=== PATIENT | male | born 1960 | race African-American/Black ===

== ENCOUNTER 2025-06-21 05:57 | Inpatient (IN) | payer MEDICARE, MEDICAID ==
[~2025-06-21] VITALS: Ht 172.7 cm; Wt 62.9 kg
[2025-06-21] MEDS: SODIUM CHLORIDE 0.9% 1,000 ML IV ONE (06:15)
[2025-06-21] MEDS: KETOROLAC TROMETH 30 MG/ML 1ML VIAL IV ONE (06:15)
--- NOTE | 2025-06-21 06:23 | ED.PDOC ---
Musculoskeletal HPI Comments This is a 64 year old male YVONA presenting to the ED with chief complaint of leg pain and generalized weakness. EMS reports patient called 911 while at a hotel with his mother due to not being able to ambulate on his own from right leg pain that he has been experiencing for the past few days. Patient relays that his pa in worsened around 4:30 this morning when attempting to go to the bathroom. EMS states patient had recently been prescribed Cipro for a UTI diagnosis, however, he has not been taking his antibiotics as prescribed. Patient denies any N/V/D, chest pain, SOB, dizziness, headache, or syncope. Chief Complaint: General Weakness Time Seen by MD: 06:21 Reviewed Notes: Nurses Notes, [employer] Notes, Medications, Allergies Allergies: Coded Allergies: NO KNOWN ALLERGIES (Unverified , 06/21/25) Information Source: Patient, Emergency Med Personnel Mode of Arrival: EMS Location: Right Extremity Location: Leg Timing: Days Prehospital treatment: None Severity: Moderate Able to Move Extremity: Yes Bear Weight: Limited Pain: Moderate Mechanism: Spontaneous Circumstances: Spontaneous Onset of Symptoms: Spontaneous Symptoms: Pain DVT Risk Factors: NONE Last Tetanus: Unknown Past Medical History PAST MEDICAL HISTORY: UTI'S Past Medical History (Other): Parkinson's Surgical History: Denies all surgeries Family History Family History: Reviewed,noncontributory to illness Social History Smoker: Non-Smoker Alcohol: Denies ETOH Use Drugs: Denies Drug Use Lives In: Home Constitutional: reports: weakness; denies: chills, diaphoresis, fatigue, fever, malaise, sweats, others EENTM: denies: blurred vision, double vision, ear bleeding, ear discharge, ear drainage, ear pain, ear ringing, eye pain, eye redness, hearing loss, mouth pain, mouth swelling, nasal discharge, nose bleeding, nose congestion, nose pain, photophobia, tearing, throat pain, throat swelling, voice changes, others Respiratory: denies: cough, hemoptysis, orthopnea, SOB at rest, shortness of breath, SOB with excertion, stridor, wheezing, others Cardiovascular: denies: chest pain, dizzy spells, diaphoresis, Dyspnea on exertion, edema, irregular heart beat, left arm pain, lightheadedness, palpitations, PND, syncope, others Gastrointestinal: denies: abdomen distended, abdominal pain, blood streaked bowels, constipated, diarrhea, dysphagia, difficulty swallowing, hematemesis, melena, nausea, poor appetite, poor fluid intake, rectal bleeding, rectal pain, vomiting, others Genitourinary: denies: burning, dysuria, flank pain, frequency, hematuria, incontinence, penile discharge, penile sore, pain, testicle pain, testicle swelling, urgency, others Neurological: denies: dizziness, fainting, headache, left sided numbness, left sided weakness, numbness, paresthesia, pre-existing deficit, right sided numbness, right sided weakness, seizure, speech problems, tingling, tremors, weakness, others Musculoskeletal: reports: others (Right leg pain); denies: back pain, gout, joint pain, joint swelling, muscle pain, muscle stiffness, neck pain Integumetry: denies: bruises, change in color, change in hair/nails, dryness, laceration, lesions, lumps, rash, wounds, others Allergic/Immunocompromised: denies: Difficulty Healing, Frequent Infections, Hives, Itching, others Hematologic/Lymphatic: denies: anemia, blood clots, easy bleeding, easy bruising, swollen glands, others Endocrine: denies: excessive hunger, excessive sweating, excessive thirst, excessive urination, flushing, intolerance to cold, intolerance to heat, unexplained weight gain, unexplained weight loss, others Psychiatric: denies: anxiety, bipolar disorder, depression, hopeless, panic disorder, schizophrenia, sleepless, suicidal, others All Other Systems: Reviewed and Negative Physical Exam General Appearance: Moderate Distress HEENT: Pale Conjuntivae (L), Pale Conjuntivae (R), Pharynx Normal, TMs Normal Neck: Full Range of Motion, Non-Tender, Normal, Normal Inspection Respiratory: Chest Non-Tender, Lungs Clear, No Accessory Muscle Use, No Respiratory Distress, Normal Breath Sounds Cardiovascular: No Edema, No JVD, No Murmur, No Gallop, Normal Peripheral Pulses, Regular Rate/Rhythm Breast Exam: Deferred Gastrointestinal: No Organomegaly, Non Tender, No Pulsatile Mass, Normal Bowel Sounds, Soft Genitalia: Deferred Pelvic: Deferred Rectal: Deferred Extremities: No calf tenderness, Normal capillary refill, No pedal edema Musculoskeletal : Apperance: Normal Neurologic: Alert, district branch manager II-XII nml as Tested, Motor Weakness, Normal Affect, Normal Mood, No Sensory Deficits Cerebellar Function: Normal Reflexes: Normal Skin: Dry, Normal Color, Warm Lymphatic: No Adenopathy Was a procedure done? Was a procedure done?: No Differential Diagnosis EXT Differential Diagnosis: Strain X-Ray, Labs, Meds, VS Vital Signs Date Time Temp Pulse Resp B/P (MAP) Pulse Ox O2 Delivery O2 Flow Rate FiO2 06/21/25 08:50 98.9 87 17 161/101 (121) 100 98.9 06/21/25 08:50 87 17 100 Room Air 06/21/25 06:00 98.3 102 16 162/96 97 98.3 06/21/25 06:00 93 Lab Test 06/21/25 07:11 Range/Units Sodium Level 143 136-145 mmol/L Potassium Level 3.8 3.5-5.1 mmol/L Chloride Level 106 98-107 mmol/L Carbon Dioxide Level 28 20-31 mmol/L Anion Gap 9 5-15 Blood Urea Nitrogen 11 9-23 mg/dL Creatinine 1.10 0.700-1.30 mg/dL Glomerular Filtration Rate Calc 75 >90 mL/min BUN/Creatinine Ratio 10.0 10.0-20.0 Serum Glucose 77 74-106 mg/dL Calcium Level 9.5 8.7-10.4 mg/dL Current Medications Medications (Trade) Dose Ordered Sig/Michelle Route Start Time Stop Time Status Last Admin Sodium Chloride 1,000 ml @ 1,000 mls/hr Q1H ONCE IV 06/21/25 06:15 06/21/25 07:14 DC 06/21/25 06:15 Ketorolac Tromethamine (Toradol Injection) 15 mg ONCE ONCE IV 06/21/25 06:15 06/21/25 06:16 DC 06/21/25 06:15 IV Hep-Lock was established The patient was given a 1 L bolus of normal saline The patient was given ketorolac 15 mg IV push The chemistry panel is within normal limits The patient was slightly hypertensive at 161/101 At this time, the patient is being admitted to the hospitalist Images Reviewed?: Images reviewed and evaluated by me Time of 1ST Reevaluation: 10:35 Reevaluation 1ST: Unchanged Consultation: Other Patient Education/Counseling: Diagnosis, Treatment, Prognosis Family Education/Counseling: No Family Present Departure 1 Departure Time of Disposition: 10:35 Impression: Primary Impression: Generalized weakness Additional Impression: Autonomic dysfunction Disposition: 09 ADMITTED INPATIENT Admit to: Med Surg Condition: Fair Critical Care Note Critical Care Time?: No Stability Stability form required: No Heart Score Heart Score: Heart Score Response (Comments) Value History N/A 0 EKG N/A 0 Age N/A 0 Risk Factors N/A 0 Troponin N/A 0 Total 0 I personally scribed for KRISTIE BAH MD ([email or web address]) on 06/21/25 at 06:23. Electronically submitted by Craig Cabello ([email or web address]). KRISTIE BAH MD Jun 21, 2025 06:23
[2025-06-21 07:50] LABS: Chloride 106 mmol/L (98-107); Potassium 3.8 mmol/L (3.5-5.1); Sodium 143 mmol/L (136-145)
[2025-06-21 07:51] LABS: Anion Gap 9 (5-15); Calcium 9.5 mg/dL (8.7-10.4); Carbon Dioxide 28 mmol/L (20-31)
[2025-06-21 07:56] LABS: BUN/Creatinine Ratio 10.0 (10.0-20.0); Blood Urea Nitrogen 11 mg/dL (9-23); Glucose 77 mg/dL (74-106)
[2025-06-21] MEDS ORDERED: ONDANSETRON HCL 4 MG/2 ML VIAL IV PRN (12:45)
[2025-06-21] MEDS ORDERED: ACETAMINOPHEN 325 MG TAB PO PRN (12:45)
[2025-06-21] MEDS ORDERED: HYDROcodone-ACET 5/325MG TAB PO PRN (12:45)
[2025-06-21] MEDS ORDERED: PIMA10TA PO (12:48)
[2025-06-21] MEDS ORDERED: CARB25TA77 (12:48)
[2025-06-21 12:50] LABS: Urine Protein, UAD TRACE (Negative)
--- NOTE | 2025-06-21 12:52 | DVHHP2 ---
History of Present Illness Reason for Visit: Generalized weakness with leg pain History of Present Illness Adrien Dotson is a 64-year-old male with past medical history of UTIs and Parkinson's disease who presents to the ED with complaint of right leg pain and weakness. Per mom Humera at bedside patient complaining of right thigh spasming. Patient's mom also reports that several days ago he was diagnosed with a UTI and was taking ciprofloxacin 3 pills. UA today noted no UTI. Patient reports that the right leg pain is 7/10 sharp and intermittent nature. He reports that movi ng makes it worse. Per mom Humera at bedside she states that the patient hallucinates and was seeing a psychiatrist once over a year ago. Patient currently denying any SI or hallucinations auditory or visual. Patient denies any recent travels, recent trauma or injury, recent sick contacts, recent ingestion of spoiled food, chest pain, shortness of breath, fever, chills, lightheadedness, dizziness, abdominal pain, nausea vomiting, diarrhea, or urinary symptoms. Patient reports that 3 weeks ago he was at the hotel with his mother when he had rolled off of the chair and caught himself. Renal/: UTI Past Medical History Parkinson's Past Surgical History: None Family History: Arthritis, DM, Hypertension, Other (Mom with diabetes, arthritis, and hypertension.) Smoke: No ALCOHOL: none Drugs: None Lives: with Family Domestic Violence: Neg Review of Systems Constitutional: Yes: Weakness Musculoskeletal: leg pain Allergies: Coded Allergies: NO KNOWN ALLERGIES (Unverified , 06/21/25) Exam Vital Signs Vital Signs Date Time Temp Pulse Resp B/P (MAP) Pulse Ox O2 Delivery O2 Flow Rate FiO2 06/21/25 08:50 98.9 87 17 161/101 (121) 100 98.9 06/21/25 08:50 Room Air General Appearance: Alert, Oriented X3, Cooperative, No acute distress HEENT: Atraumatic, PERRLA, EOMI, Mucous membr. moist/pink Respiratory: Clear to auscultation, Normal air movement Cardiovascular: Normal S1, Normal S2, No murmurs Abdominal: Normal bowel sounds, Soft, No tenderness Extremities: No cyanosis, Normal pulses, No tenderness/swelling Skin: No rashes, No breakdown, No significant lesion Neuro: Normal speech, Strength at 5/5 X4 ext, Normal tone, Sensation intact Psych/Mental Status: Mental status NL, Mood NL Labs/Xrays Labs Test 06/21/25 08:45 06/21/25 07:11 Range/Units Sodium Level 143 136-145 mmol/L Potassium Level 3.8 3.5-5.1 mmol/L Chloride Level 106 98-107 mmol/L Carbon Dioxide Level 28 20-31 mmol/L Anion Gap 9 5-15 Blood Urea Nitrogen 11 9-23 mg/dL Creatinine 1.10 0.700-1.30 mg/dL Glomerular Filtration Rate Calc 75 >90 mL/min BUN/Creatinine Ratio 10.0 10.0-20.0 Serum Glucose 77 74-106 mg/dL Calcium Level 9.5 8.7-10.4 mg/dL CLINICAL HISTORY: pain TECHNIQUE: Color and duplex doppler imagine of the bilateral lower extremity veins was performed. Vessel compression and augmentation if possible was also performed. COMPARISON: None FINDINGS: Right Lower Extremity: Right common femoral vein: Normal compressibility and flow. Right superficial femoral vein: Normal compressibility and flow. Right popliteal vein: Normal compressibility and flow. Left Lower Extremity: Left common femoral vein: Normal compressibility and flow. Left superficial femoral vein: Normal compressibility and flow. Left popliteal vein: Normal compressibility and flow. There is a 4.3 cm Ford's cyst with septations and debris. IMPRESSION: No sonographic evidence for DVT in the bilateral lower extremity veins. 4.2 cm left Ford's cyst. EXAM: CT HEAD WITHOUT CONTRAST INDICATION: pain TECHNIQUE: CT of the head without intravenous contrast. Radiation Dose : 1. Head: CT Dose: CTDI volume is 57.72 mGy. Dose-length product is 978.7 mGy*cm The dose indicators for CT are the volume Computed Tomography (CT) Dose Index (CTDIvol) and the Dose Length Product (DLP), and are measured in units of mGy and mGy-cm, respectively. These indicators are not patient dose, but values generated from the CT scanner acquisition factors. The report includes radiation exposure data for exposures received during this examination. COMPARISON: None FINDINGS: There is no evidence of acute intracranial hemorrhage, extra-axial collection, mass effect, midline shift, herniation or hydrocephalus. The ventricles, sulci and cisterns are age appropriate. The allen-white differentiation is intact. The visualized paranasal sinuses and mastoid air cells are clear. The surrounding soft tissues and osseous structures are unremarkable. IMPRESSION: No acute intracranial abnormality. SEPSIS Sepsis Screen Date sepsis recognized/suspect: Jun 21, 2025 Time Sepsis recognized/suspect: 06 Recent Procedure: No On Antibiotic Therapy: Yes Respiratory Rate >20: No Heart Rate >90: Yes Temp<36 C (96.8 F) or >38.3 C: No SBP <90 or MAP <65 mmHG: No New Acute Mental Status Change: No Is the patient on CPAP, BIPAP,: No Physician Orders Electrocardigram (06/21/25 05:59) Urinalysis (06/21/25 06:14) Heplock Iv (06/21/25 06:14) Eight Arm Operator (06/21/25 06:14) Blood Pressure (06/21/25 06:14) Pulse Oximetry (06/21/25 06:14) Vital Signs Date Time Temp Pulse Resp B/P (MAP) Pulse Ox O2 Delivery O2 Flow Rate FiO2 06/21/25 08:50 98.9 87 17 161/101 (121) 100 98.9 06/21/25 08:50 87 17 100 Room Air 06/21/25 06:00 98.3 102 16 162/96 97 98.3 06/21/25 06:00 93 Medications Medications Dose Ordered Sig/Michelle Route Start Time Stop Time Status Last Admin Dose Admin Ketorolac Tromethamine 15 mg ONCE ONCE IV 06/21/25 06:15 06/21/25 06:16 DC 06/21/25 06:15 15 MG Sodium Chloride 1,000 ml @ 1,000 mls/hr Q1H ONCE IV 06/21/25 06:15 06/21/25 07:14 DC 06/21/25 06:15 1,000 MLS/HR Assessment/Plan Assessment/Plan Assessment Generalized weakness Right lower extremity pain rule out DVT ? Muscle spasms 4.2 cm left Ford's cyst History of UTIs History of Parkinson's Plan Admit to med surge Antiemetics Pain management NS 1 L given ED UA EKG CBC ordered CT head Bilateral lower extremity venous ultrasound CK level Antispasmodics Diet Home medications reconciled DVT prophylaxis-SCDs PUD prophylaxis-not indicated no history of GERD or GI bleed Discussed plan of care with patient and nurse [id number] Preventive counseling healthy eating habits, physical activity, and regular checkups Plan discussed with: Patient, Other Date of Service: Jun 21, 2025 Billing Provider: KAYLEEN MARIN Common Visit Codes: [id number] INP/OBS CARE (HIGH) Secondary Visit Codes: [id number] COUNSELING IND KAYLEEN MARIN Jun 21, 2025 12:52
--- NOTE | 2025-06-21 13:24 | DVH ---
EXAM: CT HEAD WITHOUT CONTRAST INDICATION: pain TECHNIQUE: CT of the head without intravenous contrast. Radiation Dose : 1. Head: CT Dose: CTDI volume is 57.72 mGy. Dose-length product is 978.7 mGy*cm The dose indicators for CT are the volume Computed Tomography (CT) Dose Index (CTDIvol) and the Dose Length Product (DLP), and are measured in units of mGy and mGy-cm, respectively. These indicators are not patient dose, but values generated from the CT scanner acquisition factors. The report includes radiation exposure data for exposures received during this examination. COMPARISON: None FINDINGS: There is no evidence of acute intracranial hemorrhage, extra-axial collection, mass effect, midline shift, herniation or hydrocephalus. The ventricles, sulci and cisterns are age appropriate. The allen-white differentiation is intact. The visualized paranasal sinuses and mastoid air cells are clear. The surrounding soft tissues and osseous structures are unremarkable. IMPRESSION: No acute intracranial abnormality. Radiation optimization: All CT scans at this facility use at least one of these dose optimization techniques: automated exposure control mA and/or kV adjustment per patient size (includes targeted exams where dose is matched to clinical indication) or iterative reconstruction.
[2025-06-21 14:17] LABS: Hematocrit 46.2 % (41.0-53.0); Hemoglobin 15.0 g/dL (13.5-17.5); Mean Corpuscular Hemoglobin 27.0 pg (28.0-32.0); Mean Corpuscular Volume 83.2 fL (80.0-100.0); Nucleated Red Blood Cells % 0.0 %
--- NOTE | 2025-06-21 15:15 | DVH ---
CLINICAL HISTORY: pain TECHNIQUE: Color and duplex doppler imagine of the bilateral lower extremity veins was performed. Vessel compression and augmentation if possible was also performed. COMPARISON: None FINDINGS: Right Lower Extremity: Right common femoral vein: Normal compressibility and flow. Right superficial femoral vein: Normal compressibility and flow. Right popliteal vein: Normal compressibility and flow. Left Lower Extremity: Left common femoral vein: Normal compressibility and flow. Left superficial femoral vein: Normal compressibility and flow. Left popliteal vein: Normal compressibility and flow. There is a 4.3 cm Ford's cyst with septations and debris. IMPRESSION: No sonographic evidence for DVT in the bilateral lower extremity veins. 4.2 cm left Ford's cyst.
[2025-06-21 15:19] VITALS: BP 113/67; PULSE 100; RESP 19; TEMP 97; O2SAT 99
[2025-06-21] MEDS ORDERED: SODIUM CHLORIDE 0.9% 1,000 ML IV SCH (16:15)
[2025-06-21 17:00] VITALS: BP 113/67; PULSE 100; RESP 19; TEMP 97.8; O2SAT 99
[2025-06-21 20:25] VITALS: PULSE 90; RESP 18; O2SAT 94
[2025-06-21] MEDS: BACLOFEN 10 MG TAB PO PRN (20:32)
[2025-06-21 20:34] VITALS: BP 107/70; PULSE 90; RESP 19; TEMP 97.5; O2SAT 98
[2025-06-22] VITALS (8 sets, daily range): BP systolic 103–158; BP diastolic 70–98; PULSE 66–90; RESP 17–19; TEMP 97.9–98.5; O2SAT 94–100
[2025-06-22 09:00] LABS: Hematocrit 43.4 % (41.0-53.0); Hemoglobin 14.2 g/dL (13.5-17.5); Mean Corpuscular Hemoglobin 27.3 pg (28.0-32.0); Mean Corpuscular Volume 83.3 fL (80.0-100.0); Nucleated Red Blood Cells % 0.1 %
[2025-06-22 09:16] LABS: Alanine Aminotransferase 12 U/L (7-40); Albumin 4.1 g/dL (3.2-4.8); Alkaline Phosphatase 71 U/L (46-116); Anion Gap 8 (5-15); BUN/Creatinine Ratio 13.3 (10.0-20.0); Bilirubin, Total 0.9 mg/dL (0.2-1.0); Blood Urea Nitrogen 12 mg/dL (9-23); Calcium 9.0 mg/dL (8.7-10.4); Carbon Dioxide 25 mmol/L (20-31); Chloride 110 mmol/L (98-107); Glucose 80 mg/dL (74-106); Potassium 3.9 mmol/L (3.5-5.1); Sodium 143 mmol/L (136-145); Total Protein 6.5 g/dL (5.7-8.2)
[2025-06-22] MEDS: CARBIDOPA W LEVODOPA CR 25/100mg TABLET PO SCH (10:26)
--- NOTE | 2025-06-22 12:32 | DVHPN2 ---
Subjective Continues to report having intermittent pain to right lower extremity. Reviewed: Care Plan, H&P, Labs, Medications Changes from previous H/P or p: No Changes General: Per HPI Musculoskeletal: leg pain Objective Vitals Vital Signs Date Time Temp Pulse Resp B/P (MAP) Pulse Ox O2 Delivery O2 Flow Rate FiO2 06/22/25 09:00 97.9 78 18 158/98 (118) 100 97.9 06/21/25 20:25 Room Air* 0 21 Intake/Output Intake and Output 06/22/25 07:00 Intake Total 290 ml Output Total 400 ml Balance -110 ml Intake Oral 290 ml Output Urine Total 400 ml General Appearance: Alert, Oriented X3, Cooperative, No acute distress HEENT: Atraumatic, PERRLA Lungs: Clear to auscultation, Normal air movement Cardiovascular: Normal S1, Normal S2 Back: Flank Tenderness, Midline Tenderness Skin: Dry, Intact Psych/Mental Status: Mental status NL, Mood NL Medications Current Medications Medications Dose Ordered Sig/Michelle Route Start Time Stop Time Status Last Admin Dose Admin Acetaminophen/ Hydrocodone Bitart 1 tab Q4HP PRN PO 06/21/25 12:45 Ondansetron HCl 4 mg Q4HP PRN IV 06/21/25 12:45 Acetaminophen 650 mg Q6HP PRN PO 06/21/25 12:45 Carbidopa/Levodopa 1 tab DAILY PO 06/22/25 10:00 06/22/25 10:26 1 TAB Patient Own Medication 1 tab DAILY PO 06/22/25 10:00 Baclofen 5 mg Q8HP PRN PO 06/21/25 17:00 06/21/25 20:32 5 MG Laboratory Results Laboratory Tests 06/22/25 08:17 Chemistry Test 06/22/25 08:17 Albumin 4.1 g/dL (3.2-4.8) Calcium Level 9.0 mg/dL (8.7-10.4) Total Protein 6.5 g/dL (5.7-8.2) LFT Test 06/22/25 08:17 Alanine Aminotransferase (ALT) 12 U/L (7-40) Alkaline Phosphatase 71 U/L (46-116) Aspartate Amino Transferase (AST) 16 U/L (13-40) Total Bilirubin 0.9 mg/dL (0.2-1.0) Urinalysis Test 06/21/25 08:45 Urine Color Yellow (Yellow) Urine Clarity Clear (Clear) Urine pH 5.0 (5.0-9.0) Urine Specific Jayess 1.024 (1.001-1.035) Urine Protein Trace (Negative) H Urine Ketones Trace (Negative) Urine Blood Negative /uL (Negative) Urine Nitrite Negative (Negative) Urine Bilirubin Negative (Negative) Urine Urobilinogen Normal mg/dL (Negative) Urine Leukocyte Esterase Negative /uL (Negative) Urine RBC 1 /hpf (0 - 3) Urine Microscopic WBC 2 /HPF (0-3) Urine Squamous Epithelial Cells None seen /hpf (<5) Urine Bacteria None seen /hpf (None Seen) Urine Hyaline Casts Few /lpf (0 - 2) Urine Mucus Few (None Seen) Urine Glucose Normal mg/dL (Normal) Labs and/or images reviewed: Labs reviewed by me, Image(s) reviewed by me Assessment/Plan Assessment/Plan Impression: -DVT ruled out -Parkinson's disease -right lower extremity pain and weakness Plan: -physical therapy -continue carbidopa levodopa -PUD, DVT prophylaxis -reassess for discharge in a.m. Total time spent with patient discussing and formulating plan of care: 35 minutes. This medical document was created using an electronic medical record system with [employer] dictation system. Although this document has been carefully reviewed, there may still be some phonetic and typographical errors. These areas are purely typographical due to imperfections of the software programs, and do not reflect any compromise in the patient's medical care. Plan discussed with: Patient, Other (RN) Date of Service: Jun 22, 2025 Billing Provider: ZION ALBRECHT NP Common Visit Codes: [id number] INP/OBS CARE(HIGH) ZION ALBRECHT NP Jun 22, 2025 12:32
[2025-06-23 01:00] VITALS: BP 162/97; PULSE 90; RESP 18; TEMP 97.7; O2SAT 100
[2025-06-23 05:00] VITALS: BP 137/89; PULSE 91; RESP 17; TEMP 97.9; O2SAT 98
[2025-06-23 07:30] VITALS: PULSE 90; RESP 18; O2SAT 94
[2025-06-23 09:00] VITALS: BP 142/86; PULSE 83; RESP 18; TEMP 98; O2SAT 99
[2025-06-23 12:34] VITALS: BP 110/78; PULSE 83; RESP 16; TEMP 97.6; O2SAT 100
--- NOTE | 2025-06-23 14:56 | DVHDS2 ---
Discharge Summary Date of Admission Jun 21, 2025 at 12:40 Date of Discharge: Jun 23, 2025 Admitting Diagnosis -DVT ruled out -Parkinson's disease -right lower extremity pain and weakness Labs/Diagnostic Data: Laboratory Results Test 06/22/25 08:17 06/21/25 08:45 06/21/25 07:11 White Blood Count 6.6 10^3/uL (4.4-10.8) Red Blood Count 5.21 10^6/uL (4.5-5.90) Hemoglobin 14.2 g/dL (13.5-17.5) Hematocrit 43.4 % (41.0-53.0) Mean Corpuscular Volume 83.3 fL (80.0-100.0) Mean Corpuscular Hemoglobin 27.3 pg (28.0-32.0) Mean Corpuscular Hemoglobin Concent 32.8 g/dL (32.0-36.0) Red Cell Distribution Width 16.9 % (11.8-14.3) Platelet Count 202 10^3/uL (140-450) Mean Platelet Volume 8.2 fL (6.9-10.8) Neutrophils (%) (Auto) 67.6 % (37.0-80.0) Lymphocytes (%) (Auto) 22.9 % (10.0-50.0) Monocytes (%) (Auto) 7.9 % (0.0-12.0) Eosinophils (%) (Auto) 0.8 % (0.0-7.0) Basophils (%) (Auto) 0.8 % (0.0-2.0) Neutrophils # (Auto) 4.4 10 ^3/uL (1.6-8.6) Lymphocytes # (Auto) 1.5 10 ^3/uL (0.4-5.4) Monocytes # (Auto) 0.5 10 ^3/uL (0-1.3) Eosinophils # (Auto) 0.1 10 ^3/uL (0-0.8) Basophils # (Auto) 0.1 10 ^3/uL (0-0.2) Nucleated Red Blood Cells 0.1 % Sodium Level 143 mmol/L (136-145) Potassium Level 3.9 mmol/L (3.5-5.1) Chloride Level 110 mmol/L (98-107) Carbon Dioxide Level 25 mmol/L (20-31) Anion Gap 8 (5-15) Blood Urea Nitrogen 12 mg/dL (9-23) Creatinine 0.90 mg/dL (0.700-1.30) Glomerular Filtration Rate Calc 95 mL/min (>90) BUN/Creatinine Ratio 13.3 (10.0-20.0) Serum Glucose 80 mg/dL (74-106) Calcium Level 9.0 mg/dL (8.7-10.4) Total Bilirubin 0.9 mg/dL (0.2-1.0) Aspartate Amino Transferase (AST) 16 U/L (13-40) Alanine Aminotransferase (ALT) 12 U/L (7-40) Alkaline Phosphatase 71 U/L (46-116) Total Protein 6.5 g/dL (5.7-8.2) Albumin 4.1 g/dL (3.2-4.8) Urine Color Yellow (Yellow) Urine Clarity Clear (Clear) Urine pH 5.0 (5.0-9.0) Urine Specific [place] 1.024 (1.001-1.035) Urine Protein Trace (Negative) Urine Ketones Trace (Negative) Urine Blood Negative /uL (Negative) Urine Nitrite Negative (Negative) Urine Bilirubin Negative (Negative) Urine Urobilinogen Normal mg/dL (Negative) Urine Leukocyte Esterase Negative /uL (Negative) Urine RBC 1 /hpf (0 - 3) Urine Microscopic WBC 2 /HPF (0-3) Urine Squamous Epithelial Cells None seen /hpf (<5) Urine Bacteria None seen /hpf (None Seen) Urine Hyaline Casts Few /lpf (0 - 2) Urine Mucus Few (None Seen) Urine Glucose Normal mg/dL (Normal) Creatine Kinase 70 U/L (46-171) Other Laboratory Tests 06/22/25 08:17 Brief Hx & Hospital Course: . This is a 64 years old male with past medical history UTI and Parkinson's disease present in emergency department because of right leg pain and weakness. Per momHumera at bedside patient complained of right thigh spasm. Patient reports several days ago he was diagnosis with UTI and was taking Cipro for three pills. UA in the emergency department showed no urinary tract infection. Ultrasound showed no acute DVT. The patient said the patient is hallucinating and had been seeing a psychiatrist a year ago the patient was admitted. The patient was given IV fluid for hydration. The patient denied any hallucination visually or any auditory the patient is able to walk with physical therapy more than 100 ft. I am going to discharge him home. Advised him to follow up with primary care physician 1-2 weeks. Follow up with psychiatrist per schedule. Activity as tolerated. Diet per home diet. Physical exam: HEENT: Normocephalic atraumatic pupils equal react to light and accommodation. Extraocular muscles intact, conjunctiva pink, oropharynx moist, no thrush, no exudate. Lymphatic: No lymphadenopathy Cardiovascular exam: S1, S2 was heard. No murmurs, rubs, gallops Lung: Clear on auscultation bilaterally, no wheeze, rale, rhonchi. GI: Abdominal soft, nondistended, nontenderness, positive bowel sounds. Extremity: No crepitus, cyanosis, edema. Pedal pulses present bilateral. Full range of motion. Skin: Normal turgor, no rash. Psych: Alert, oriented x3. Neurology: No focal deficits, cranial nerve II to XII grossly intact. This medical document was created using an electronic medical record system with [employer] computerized dictation system. Although this document has been carefully reviewed, there may still be some phonetic and typographical errors. These areas are purely typographical due to imperfections of the software programs, and do not reflect any compromise in the patient's medical care. Condition at Discharge: Stable Final Diagnosis/Problems List -DVT ruled out -Parkinson's disease -right lower extremity pain and weakness Discharge Disposition: Home Discharge Instruct/Medications Scheduled Pimavanserin Tartrate (Nuplazid), 1 TAB PO DAILY, (Reported) Miscellaneous Medications Carbidopa-Levodopa (Carbidopa/Levodopa Er), (Reported) Discharge Statement: "Patient was advised to return to the ER or call 911 if any headaches, dizziness, shortness of breath, chest pain, abdominal pain, bleeding, fevers, or worsening of medical condition. Patient was counseled about treatment plan, medications, possible side effects, patientverbalized understanding. All questions were answered to the best of my ability. This discharge took greater then 30 minutes in planning, reviewing documentation, counseling the patient, and discussing with other team members." ASSESSMENT ASSESSMENT Assessment Date of Service: Jun 23, 2025 Billing Provider: ELMIRA CRISTOBAL MD Common Visit Codes: 76646-QDJ/OBS DISCH DAY >30min ELMIRA CRISTOBAL MD Jun 23, 2025 14:56
--- NOTE | 2025-06-26 07:22 | ECG ---
[facility] Test Date: 2025-06-21 Test Time: 05:54:38 Pat Name: LITA HARDING Department: ED Room: 0245 B Gender: M [employer]: MARY : 1960 Requested By: KRISTIE BAH Order Number: [id number] Reading MD: Manny Aguilar Measurements Intervals [place] Rate: 93 P: 42 IL: 121 QRS: 71 QRSD: 87 T: -1 QT: 328 QTc: 408 Interpretive Statements Sinus rhythm Abnormal R-wave progression, early transition ST depr, consider ischemia, inferior leads Electronically Signed On 06-26-2025 17:37:40 PST by Manny Aguilar Please click the below link to view image of tracing.
== END 2025-06-23 16:41 | disposition home or self-care (01) | DRG 556 ==
LOC: ER 05:57 → EDBD 05:57 → OVERFLOW 12:40 → EAST 15:30
PROVIDERS: ADMIT Nurse Practitioner Acute Care; ATTEND Nurse Practitioner Acute Care
DX: M62.838 Other muscle spasm (principal); G20.A1 Parkinson's disease without dyskinesia, without mention of fluctuations; M79.604 Pain in right leg; M71.22 Synovial cyst of popliteal space [Baker], left knee; Z82.49 Family history of ischemic heart disease and other diseases of the circulatory system; Z83.3 Family history of diabetes mellitus; Z87.440 Personal history of urinary (tract) infections
CPT/HCPCS: 36415; 70450; 80048; 80053; 81001; 82550; 85025; 93005; 93970; 96361; 96374; 97163; G0378; J1885